=== PATIENT | female | born 1995 | race Caucasian/White ===

== ENCOUNTER 2025-01-25 23:45 | Inpatient (IN) | payer OTHER ==
[2025-01-26 00:55] VITALS: BMI 30.5
[2025-01-26] MEDS ORDERED: LABETALOL HCL 200 MG TABLET (FP) ONE ×2 (01:10→14:06)
[2025-01-26] MEDS: LABETALOL HCL 200 MG TABLET (FP) PO ONE (01:12)
[2025-01-26] MEDS: ELECTROLYTE-148 SOLN 1,000 ML IV SCH (01:29)
[2025-01-26 01:57] LABS: ABSOLUTE IMMATURE GRANULOCYTES 0.08 x10^3/uL (0.0-0.031); BASOPHILS # 0.02 x10^3/uL (0.01-0.08); EOSINOPHIL % 0.6 % (0.7-5.8); EOSINOPHILS # 0.07 x10^3/uL (0.04-0.36); HEMATOCRIT 38.7 % (34.1-44.9); HEMOGLOBIN 12.5 g/dL (11.2-15.7); MCHC 32.3 g/dl (32.2-35.5); MEAN CELL VOLUME 92.1 fl (79.4-94.8); MEAN PLT VOLUME 12.6 fl (9.4-12.3); MONOCYTE % 6.5 % (4.7-12.5); PLATELET COUNT 173 x10^3/uL (182-369); RDW 14.3 % (12.1-16.5)
[2025-01-26 02:12] LABS: INR 0.93 (0.83-1.09); PROTHROMBIN TIME (PATIENT) 10.1 SEC (9.7-13.0)
[2025-01-26 02:15] LABS: ACTIVATED PTT 27.7 SECONDS (25.2-36.5)
[2025-01-26 02:21] LABS: POTASSIUM 4.4 mmol/L (3.5-5.1)
[2025-01-26 02:23] LABS: ALBUMIN 2.7 g/dl (3.4-5.0)
[2025-01-26 02:26] LABS: CREATININE 0.5 mg/dL (0.55-1.3)
[2025-01-26 02:28] LABS: BILIRUBIN,TOTAL 0.1 mg/dL (0.2-1)
[2025-01-26 02:33] LABS: CALCIUM 9.3 mg/dL (8.5-10.1)
[2025-01-26] MEDS: LABETALOL HCL 200 MG TABLET (FP) PO SCH (07:33)
[2025-01-26] MEDS: OXYTOCIN 30 UNITS in 0.9% NS 30 UNIT/500 ML INFUS.BAG IVPB SCH (08:00)
[2025-01-26] MEDS ORDERED: OXYTOCIN 30 UNITS in 0.9% NS 30 UNIT/500 ML INFUS.BAG IVPB ONE (08:04)
[2025-01-26] MEDS: AMPICILLIN - 2 GM in SODIUM CHLORIDE 100 ML IVPB ONE (14:30)
[2025-01-26] MEDS ORDERED: AMPICILLIN SODIUM 2 GM VIAL ONE (14:34)
[2025-01-26] MEDS ORDERED: BUTORPHANOL TARTRATE 2 MG/ML VIAL ONE (17:37)
[2025-01-26] MEDS ORDERED: PROMETHAZINE HCL 25 MG/1 ML VIAL ONE (17:37)
[2025-01-26] MEDS: BUTORPHANOL TARTRATE 2 MG/ML VIAL IVPB PRN (17:45)
[2025-01-26] MEDS: PROMETHAZINE HCL 25 MG/1 ML VIAL IVPB ONE (17:45)
[2025-01-26] MEDS ORDERED: AMPICILLIN SODIUM 1 GM VIAL ONE ×2 (18:14→21:41)
[2025-01-26] MEDS: AMPICILLIN - 1 GM in SODIUM CHLORIDE 100 ML IVPB SCH (18:30)
[2025-01-26] MEDS ORDERED: FENTANYL/BUPIVACAINE/NS/PF - PCEA - 50 ML DISP.SYRIN EP ONE (20:34)
[2025-01-26] MEDS: FENTANYL/BUPIVACAINE/NS/PF - PCEA - 50 ML DISP.SYRIN EP SCH (21:16)
[2025-01-26] MEDS ORDERED: NALOXONE HCL 0.4 MG/ML VIAL IVPUSH PRN (21:36)
[2025-01-27] MEDS ORDERED: AMPICILLIN SODIUM 1 GM VIAL ONE (01:34)
[2025-01-27] MEDS ORDERED: FENTANYL/BUPIVACAINE/NS/PF - PCEA - 50 ML DISP.SYRIN EP ONE (01:34)
[2025-01-27] MEDS ORDERED: AZITHROMYCIN IVPB 500 MG/250 ML BAG IVPB ONE (02:37)
[2025-01-27] MEDS ORDERED: IBUPROFEN 800 MG/8 ML IJ IVPB PRN (02:44)
[2025-01-27] MEDS ORDERED: METHYLERGONOVINE MALEATE 0.2 MG/1 ML AMP IM PRN (02:44)
[2025-01-27] MEDS ORDERED: ONDANSETRON 4 MG/2 ML VIAL ONE (03:41)
[2025-01-27] MEDS ORDERED: OXYTOCIN 10 UNITS/ML VIAL ONE ×4 (03:41→04:35)
[2025-01-27] MEDS ORDERED: ceFAZolin SODIUM 1 GM VIAL ONE (03:41)
[2025-01-27] MEDS ORDERED: DEXAMETHASONE SOD PHOSPHATE 4 MG/1 ML VIAL ONE (03:41)
[2025-01-27] MEDS ORDERED: KETOROLAC TROMETHAMINE 30 MG/1 ML VIAL ONE (03:41)
[2025-01-27] MEDS ORDERED: EPINEPHrine 1:1000 P/F - 1 MG/ML AMP ONE (03:41)
[2025-01-27] MEDS ORDERED: METOCLOPRAMIDE HCL INJECTION 10 MG/2 ML VIAL ONE (03:41)
[2025-01-27] MEDS ORDERED: LIDOCAINE HCL/PF 2% SDV 5ML VIAL ONE (03:41)
[2025-01-27] MEDS ORDERED: FENTANYL CITRATE/PF 50 MCG/ML VIAL ONE (03:55)
[2025-01-27] MEDS ORDERED: morphine SULFATE/PF 1 MG/2 ML (2cc Syringe - QUVA) ONE (04:08)
[2025-01-27] MEDS ORDERED: ESMOLOL HCL 100,000 MCG/10 ML VIAL ONE (04:16)
[2025-01-27] MEDS ORDERED: OXYTOCIN 20 UNITS in 0.9% NS 20 UNIT/1,000 ML INFUS.BAG IV ONE (04:51)
[2025-01-27] MEDS: OXYTOCIN 20 UNITS in 0.9% NS 20 UNIT/1,000 ML INFUS.BAG IV SCH (05:00)
[2025-01-27 05:44] LABS: CORD BASE EXCESS -1.6 mmol/L (0-2); CORD BASE EXCESS -3.9 mmol/L (0-2); CORD HCO3 21.3 mmHg (20-29); CORD HCO3 26.8 mmHg (20-29); CORD PCO2 39.6 mmHg (30-78); CORD PCO2 58.6 mmHg (30-78); CORD pH 7.278 (7.14-7.44); CORD pH 7.348 (7.14-7.44)
[2025-01-27] MEDS: FERROUS SO4 325 MG TABLET (FP) PO SCH (08:15)
[2025-01-27] MEDS: PRENATAL VITAMINS W/ FOLIC ACID TABLET (FP) PO SCH (10:49)
[2025-01-27] MEDS ORDERED: oxyCODONE HCL 5 MG TABLET PO PRN (14:44)
[2025-01-27] MEDS: SIMETHICONE 80 MG TAB.CHEW (FP) PO PRN (20:35)
[2025-01-27] MEDS: IBUPROFEN 600 MG TABLET (FP) PO PRN (20:35)
[2025-01-28] MEDS: ACETAMINOPHEN 325 MG TABLET (FP) PO PRN (00:31)
[2025-01-28] MEDS ORDERED: BISACODYL 10 MG SUPP.RECT RC PRN (02:44)
[2025-01-28 08:20] LABS: ABSOLUTE IMMATURE GRANULOCYTES 0.05 x10^3/uL (0.0-0.031); BASOPHILS # 0.02 x10^3/uL (0.01-0.08); EOSINOPHIL % 0.3 % (0.7-5.8); EOSINOPHILS # 0.03 x10^3/uL (0.04-0.36); HEMATOCRIT 31.5 % (34.1-44.9); MCHC 31.7 g/dl (32.2-35.5); MEAN CELL VOLUME 93.2 fl (79.4-94.8); MEAN PLT VOLUME 12.2 fl (9.4-12.3); MONOCYTE # 0.65 x10^3/uL (0.24-0.86); MONOCYTE % 6.5 % (4.7-12.5); PLATELET COUNT 122 x10^3/uL (182-369); RDW 14.8 % (12.1-16.5)
[2025-01-29] MEDS: oxyCODONE HCL 5 MG TABLET PO PRN (08:37)
[2025-01-29 13:55] LABS: POC NITRAZINE POS
[2025-01-29] MEDS: SENNOSIDES/DOCUSATE COMBO (SENNA PLUS) TABLET (UD) PO PRN (22:32)
[2025-01-30 08:13] LABS: ABSOLUTE IMMATURE GRANULOCYTES 0.06 x10^3/uL (0.0-0.031); BASOPHILS # 0.02 x10^3/uL (0.01-0.08); EOSINOPHIL % 2.7 % (0.7-5.8); EOSINOPHILS # 0.22 x10^3/uL (0.04-0.36); HEMATOCRIT 33.7 % (34.1-44.9); HEMOGLOBIN 10.6 g/dL (11.2-15.7); MCHC 31.5 g/dl (32.2-35.5); MEAN CELL VOLUME 94.1 fl (79.4-94.8); MEAN PLT VOLUME 11.9 fl (9.4-12.3); MONOCYTE # 0.47 x10^3/uL (0.24-0.86); MONOCYTE % 5.8 % (4.7-12.5); PLATELET COUNT 177 x10^3/uL (182-369); RDW 14.7 % (12.1-16.5)
[2025-01-31] MEDS ORDERED: PRENATAL VITAMINS W/ FOLIC ACID TABLET (FP) PO SCH (12:30)
[2025-01-31 14:34] VITALS: PULSE 91; RESP 17; TEMP 97.3
[2025-01-31 15:05] VITALS: BP 117/83
[2025-02-01] MEDS ORDERED: PRENATAL VITAMINS W/ FOLIC ACID TABLET (FP) PO SCH (10:00)
== END 2025-01-31 17:10 | disposition home or self-care (01) | DRG 540 ==
LOC: JLDR 23:45 → J3W 01-27 07:48
PROVIDERS: ADMIT Obstetrics & Gynecology; ATTEND Obstetrics & Gynecology
PROC: 10D00Z1 Extraction of Products of Conception, Low, Open Approach (ICD-10-PCS; principal; 2025-01-27)
DX: O13.4 Gestational [pregnancy-induced] hypertension without significant proteinuria, complicating childbirth (principal); O62.2 Other uterine inertia; O41.8X30 Other specified disorders of amniotic fluid and membranes, third trimester, not applicable or unspecified; O62.1 Secondary uterine inertia; O90.81 Anemia of the puerperium; D64.9 Anemia, unspecified; Z3A.38 38 weeks gestation of pregnancy; Z37.0 Single live birth
CPT/HCPCS: 36415; 36600; 80053; 82803; 83986-QW; 85025; 85610; 85730; 86780; 86850; 86900; 86901; 88307-TC